=== PATIENT | female | born 1970 | race African-American/Black ===

== ENCOUNTER 2024-01-01 09:54 | Outpatient (CLI) | payer OTHER | END 2024-01-01 09:55 | disposition home or self-care (01) | LOC: BICMAMMO 09:54 | PROVIDERS: ATTEND Family Medicine | DX: Z12.31 Encounter for screening mammogram for malignant neoplasm of breast (principal) | CPT/HCPCS: 77063; 77067 ==

== ENCOUNTER 2024-06-03 08:44 | Outpatient (CLI) | payer OTHER | END 2024-06-03 08:45 | disposition home or self-care (01) | LOC: RAD 08:44 | PROVIDERS: ATTEND Family Medicine | DX: M79.671 Pain in right foot (principal); M77.31 Calcaneal spur, right foot ==